=== PATIENT | female | born 1960 | race Caucasian/White ===

== ENCOUNTER 2017-02-27 10:59 | Emergency (ER) | payer SELFPAY ==
[2017-02-27 11:06] VITALS: BP 121/71; PULSE 76; RESP 20; TEMP 98.1
[2017-02-27 11:12] VITALS: O2SAT 98
--- NOTE | 2017-02-27 11:27 | C.PDOC ---
History Of Present Illness 57F c/o intermittent right ear pain for 1 month assoc w some pain in the right front of her neck. no fever. she has not tried any medication for her sx. she is visiting the [place] for 4 months. pmh hlp denies any other problems. Time Seen by Provider: 02/27/17 11:16 Chief Complaint (Nursing): ENT Problem Past Medical History Vital Signs: Last Vital Signs Temp 98.1 F 02/27/17 11:02 Pulse 76 02/27/17 11:02 Resp 20 02/27/17 11:02 BP 121/71 02/27/17 11:02 Pulse Ox 98 02/27/17 11:29 - Medical History PMH: Hyperlipidemia Family History: States: Other Other Family History: nc - Social History Hx Alcohol Use: No Hx Substance Use: No - Immunization History Hx Tetanus Toxoid Vaccination: No Hx Influenza Vaccination: No Hx Pneumococcal Vaccination: No Review Of Systems Constitutional: Negative for: Fever, Chills, Weakness, Malaise Eyes: Negative for: Vision Change ENT: Positive for: Ear Pain, Other (no hearing loss). Negative for: Ear Discharge Cardiovascular: Negative for: Chest Pain Respiratory: Negative for: Cough, Shortness of Breath Gastrointestinal: Negative for: Nausea, Vomiting Neurological: Negative for: Weakness, Numbness, Headache Physical Exam - Physical Exam Appears: Well, Non-toxic, No Acute Distress Skin: Warm, Dry Eye(s): bilateral: PERRL, EOMI Ear(s): Bilateral: Other (TMs non-erythematous b/l, canals non-edematous non- erythematous no fb) Nose: No Epistaxis Oral Mucosa: Moist Tongue: No Swelling, No Lesions, No Erythema Lips: No Swelling, No Lesions, No Erythema Gingiva: No Erythema, No Ulceration, No Swelling Throat: No Erythema, No Exudate, No Drooling, No Mass, Other (tonsil sym, uvula midline) Neck: Normal ROM, Supple, Other (small right anterior tender lymph node) Cardiovascular: Rhythm Regular Respiratory: No Decreased Breath Sounds, No Accessory Muscle Use Neurological/Psych: Oriented x3, Other (no focal deficits) ED Course And Treatment O2 Sat by Pulse Oximetry: 98 Disposition - Disposition Disposition: HOME/ ROUTINE Disposition Time: 11:29 Condition: GOOD Forms: [facility] (Portuguese) - Clinical Impression Clinical Impression: Ear pain
== END 2017-02-27 11:41 | disposition home or self-care (01) ==
LOC: C.ER 10:59
DX: H92.01 Otalgia, right ear (principal)